=== PATIENT | female | born 1945 | race Hispanic/Latino ===

== ENCOUNTER 2016-06-25 11:08 | Day surgery (SDC) | payer OTHER ==
[~2016-06-25 11:08] MED LIST: IOPIDINE ONE; IOPIDINE OS ONE; MYDRIACYL ONE; MYDRIACYL OS ONE; NEOFRIN ONE; NEOFRIN OS ONE
[2016-06-25] MEDS ORDERED: IOPIDINE OS ONE (11:35)
[2016-06-25] MEDS ORDERED: MYDRIACYL OS ONE (11:35)
[2016-06-25] MEDS ORDERED: NEOFRIN OS ONE (11:35)
[2016-06-25 11:51] VITALS: BP 120/64
== END 2016-06-25 12:15 | disposition home or self-care (01) ==
LOC: OR 11:08
PROVIDERS: ATTEND Specialist
DX: H26.492 Other secondary cataract, left eye (principal)